=== PATIENT | female | born 1960 | race Caucasian/White ===

== ENCOUNTER 2017-03-22 17:53 | Emergency (ER) | payer OTHER ==
[~2017-03-22] VITALS: Wt 75.5 kg
[~2017-03-22 17:53] MED LIST: CYCL-319 PO; IBUP-1542 PO; [UNRECOGNIZED DRUG - REMARK]
--- NOTE | 2017-03-22 22:21 | ERA ---
ER Documentation Chief Complaint Date/Time DATE: 03/22/17 TIME: 22:20 Chief Complaint FEVER WITH N/V X 4 days HPI The patient is a 57-year-old female, presenting with fever, chills for 4 days, complains of intermittent occipital frontal headache for the last 8 days, intermittent right-sided abdominal pain for more than 3 months. She denies nasal congestion, sore throat, cough, neck pain, chest pain, constipation, diarrhea. She complained of dysuria for the last 4 days. X Past medical history: History of lymphoma. She finished her last chemotherapy last week. She also has diabetes mellitus, hypertension, dyslipidemia Past surgical history: 3 C-sections, right inguinal herniorrhaphy ROS All systems reviewed and are negative except as per history of present illness. Medications Home Meds Active Scripts Ibuprofen* (Motrin*) 600 Mg Tab, 600 MG PO Q6, #20 TAB Prov:WAQAS BRIDGES MD 03/23/17 Ciprofloxacin Hcl* (Ciprofloxacin Hcl*) 500 Mg Tablet, 500 MG PO BID for 7 Days , TAB Prov:WAQAS BRIDGES MD 03/23/17 Ibuprofen* (Motrin*) 600 Mg Tab, 600 MG PO Q6H Y for PAIN AND OR ELEVATED TEMP, #30 Prov:NINFA BAKER. [employer] 04/14/15 Reported Medications Ondansetron Hcl* (Ondansetron Hcl*) 8 Mg Tablet, 8 MG PO DAILY Y for NAUSEA AND OR VOMITING, TAB 03/22/17 Docusate Sodium* (Stool Softener*) 50 Mg Capsule, 50 MG PO DAILY, CAP 03/22/17 Linagliptin (TRADJENTA) 5 Mg Tablet, 5 MG PO DAILY, TAB 03/22/17 Aspirin (Aspir-Low) 81 Mg Tablet.dr, 81 MG PO DAILY 03/22/17 Benazepril Hcl* (Benazepril Hcl*) 5 Mg Tablet, 5 MG PO DAILY, #30 TAB 03/22/17 Metformin Hcl* (Metformin Hcl*) 500 Mg Tablet, 500 MG PO WITH BREAKFAST DINNE, # 60 TAB 03/22/17 Gemfibrozil* (Gemfibrozil*) 600 Mg Tablet, 600 MG PO BID, TAB 03/22/17 Glyburide* (Glyburide*) 5 Mg Tablet, 5 MG PO BID, #60 TAB 03/22/17 Acetaminophen* (Tylenol*) 500 Mg Tab, 500 MG PO Q6H Y for FEVER, TAB 03/22/17 Discontinued Reported Medications [Dm, Cholesterol Med Unknown] No Conflict Check 02/14/12 Discontinued Scripts Cyclobenzaprine Hcl* (Cyclobenzaprine Hcl*) 10 Mg Tablet, 10 MG PO TID, #15 TAB Prov:NINFA BAKER [employer] 04/14/15 Allergies Allergies: Coded Allergies: Penicillins (Verified Allergy, Severe, SWOLLEN FACE, 03/22/17) PMhx/Soc History of Surgery: Yes (C-SECTIONS, BLADDER) Anesthesia Reaction: No Hx Neurological Disorder: No Hx Respiratory Disorders: No Hx Cardiac Disorders: No Hx Psychiatric Problems: No Hx Miscellaneous Medical Probl: No Hx Alcohol Use: No Hx Substance Use: No Hx Tobacco Use: No Physical Exam Vitals Vital Signs Date Time Temp Pulse Resp B/P Pulse Ox O2 Delivery O2 Flow Rate FiO2 03/23/17 00:48 100.0 115 18 104/58 98 Room Air 03/22/17 22:53 100.7 128 18 100/52 98 Room Air 03/22/17 18:03 102.5 147 18 134/69 99 Physical Exam Const: No acute distress. Head: Atraumatic. Eyes: Normal Conjunctiva. ENT: Normal External Ears, Nose and Mouth. Neck: Full range of motion. No meningismus. Resp: Clear to auscultation bilaterally. Cardio: Regular Tachycardic Abd: Soft, non distended, normal bowel sounds, Minimal and vague right -sided abdominal tenderness, no rigidity, rebound, CVA tenderness Skin: No petechiae or rashes. Back: No midline or flank tenderness. Ext: No cyanosis, or edema. Neur: Awake and alert. No focal deficit Psych: Normal Mood and Affect. Result Diagram: 03/22/17223903/22/172239 Results 24 hrs Laboratory Tests Test 03/22/17 22:40 03/22/17 22:42 White Blood Count 7.510^3/ul Red Blood Count 3.4610^6/ul Hemoglobin 9.9g/dl Hematocrit 29.9% Mean Corpuscular Volume 86.4fl Mean Corpuscular Hemoglobin 28.6pg Mean Corpuscular Hemoglobin Concent 33.1g/dl Red Cell Distribution Width 13.4% Platelet Count 03164^3/UL Mean Platelet Volume 9.5fl Neutrophils % 87.5% Lymphocytes % 2.8% Monocytes % 8.4% Eosinophils % 0.4% Basophils % 0.1% Nucleated Red Blood Cells % 0.0/100WBC Neutrophils # 6.510^3/ul Lymphocytes # 0.210^3/ul Monocytes # 0.610^3/ul Eosinophils # 0.010^3/ul Basophils # 0.010^3/ul Nucleated Red Blood Cells # 0.010^3/ul Prothrombin Time 14.4Sec Prothrombin Time Ratio 1.1 INR International Normalized Ratio 1.12 Activated Partial Thromboplast Time 34.6Sec Urine Color YELLOW Urine Clarity CLOUDY Urine pH 6.0 Urine Specific Julian 1.003 Urine Ketones NEGATIVEmg/dL Urine Nitrite NEGATIVEmg/dL Urine Bilirubin NEGATIVEmg/dL Urine Urobilinogen NEGATIVEmg/dL Urine Leukocyte Esterase 3+Alla/ul Urine Microscopic RBC 2/HPF Urine Microscopic WBC > 182/HPF Urine Bacteria FEW/HPF Urine Hemoglobin 1+mg/dL Urine Glucose NEGATIVEmg/dL Urine Total Protein NEGATIVEmg/dl Sodium Level 135mmol/L Potassium Level 3.9mmol/L Chloride Level 101mmol/L Carbon Dioxide Level 24mmol/L Anion Gap 14 Blood Urea Nitrogen 7mg/dl Creatinine 0.44mg/dl Glucose Level 308mg/dl Lactic Acid Level 1.8mmol/L Calcium Level 8.7mg/dl Total Bilirubin 0.2mg/dl Direct Bilirubin 0.00mg/dl Indirect Bilirubin 0.2mg/dl Aspartate Amino Transf (AST/SGOT) 26IU/L Alanine Aminotransferase (ALT/SGPT) 47IU/L Alkaline Phosphatase 147IU/L Troponin I 0.085ng/ml Total Protein 6.5g/dl Albumin 3.6g/dl Globulin 2.90g/dl Albumin/Globulin Ratio 1.24 Bedside Urine pH (LAB) 5.5 Bedside Urine Protein (LAB) 1+ Bedside Urine Glucose (UA) Negative Bedside Urine Ketones (LAB) Negative Bedside Urine Blood 1+ Bedside Urine Nitrite (LAB) Negative Bedside Urine Leukocyte Esterase (L 3+ Current Medications Medications (Trade) Dose Ordered Sig/Dianne Route PRN Reason Start Time Stop Time Status Last Admin Dose Admin Acetaminophen 650 mg 650 mg ONCE ONCE PO 03/22/17 23:00 03/22/17 23:01 DC 03/22/17 23:07 Sodium Chloride (NS) 2,340 ml @ 2,340 mls/hr BOLUS X1 ONCE IV 03/22/17 23:00 03/22/17 23:59 DC 03/22/17 23:07 Morphine Sulfate (morphine) 2 mg ONCE ONCE IV 03/22/17 23:00 03/22/17 23:02 DC 03/22/17 23:06 Ondansetron HCl 4 mg 4 mg ONCE STAT IV 03/22/17 23:00 03/22/17 23:02 DC 03/22/17 23:07 Ciprofloxacin/ Dextrose (Cipro Ivpb) 200 ml @ 200 mls/hr ONCE ONCE IVPB 03/23/17 01:00 03/23/17 01:59 Ibuprofen 600 mg 600 mg ONCE ONCE PO 03/23/17 01:00 03/23/17 01:01 Sodium Chloride (NS) 1,000 ml @ 1,000 mls/hr Q1H ONCE IV 03/23/17 01:00 03/23/17 01:59 Procedures/[place] [id number] Radiology Main Line: [phone] DIAGNOSTIC IMAGING REPORT Patient: CRIS LUCERO : 1960 Age: 57 Sex: F MR #: [id number] DOS: 03/22/172220 Ordering MD: WAQAS BRIDGES MD Location: E/R Room/Bed: PROCEDURE: Chest. CLINICAL INDICATION: Chest pain. TECHNIQUE: Single frontal view of the chest was obtained. COMPARISON: None. FINDINGS: The cardiac silhouette is within normal limits. The aortic arch is unremarkable. There is no focal consolidation, vascular congestion or pleural effusion. There is no pneumothorax. IMPRESSION: No evidence for active cardiopulmonary disease. .Dejon Echeverria MD, MD Date Time Electronically viewed and signed by .Dejon Echeverria MD, MD on 03/22/2017 23:54 .T/ CC: WAQAS BRIDGES MD [place] [address] Radiology Main Line: [phone] DIAGNOSTIC IMAGING REPORT Patient: CRIS LUCERO : 1960 Age: 57 Sex: F MR #: [id number] DOS: 03/22/17 2259 Ordering MD: WAQAS BRIDGES MD Location: E/R Room/Bed: PROCEDURE: CT Abdomen and Pelvis without contrast. CLINICAL INDICATION: Abdominal pain. TECHNIQUE: A CT scan of the abdomen and pelvis was performed without intravenous contrast. Coronal and sagittal reformatted images were generated. Images were reviewed on a high-resolution PACS workstation. CTDIvol: 13.94 mGy. DLP: 795.44 mGy-cm. One or more of the following dose reduction techniques were used: - Automated exposure control. - Adjustment of the mA and/or kV according to patient size. - Use of iterative reconstruction technique. COMPARISON: None. FINDINGS: The lung bases are clear. Evaluation of the abdominal and pelvic viscera is limited by the lack of oral and intravenous contrast. The liver (18.3 cm) and spleen (14.3 cm) are mildly enlarged. The liver is diffusely hypodense, consistent with fatty infiltration. The gallbladder is contracted. The common bile duct is not dilated. The spleen is not enlarged. No pancreatic lesion is identified and there is no pancreatic ductal dilatation. The adrenal glands are unremarkable. The kidneys are normal in size. There is mild to moderate symmetric perinephric fat stranding, probably age-related. No hydronephrosis is seen. No urinary stone is identified. There is a small to moderate amount of fluid and fat infiltration in the central small bowel mesentery The small and large bowel are normal in caliber. There is no bowel wall thickening. There is minimal sigmoid colon diverticulosis. The appendix is normal. The urinary bladder is unremarkable. The pelvic organs are within normal limits. No lymphadenopathy is identified. There is no ascites. No pneumoperitoneum is seen. There are mild arterial calcifications. No suspicious osseous lesion is idenitified. IMPRESSION: 1. Small to moderate amount of fluid and fat infiltration in the central small bowel mesentery, nonspecific but possibly related to a panniculitis. The adjacent small bowel is normal in appearance. 2. Mild hepatosplenomegaly and fatty infiltration of the liver. 3. No obstructive uropathy or urinary stone. 4. Normal appendix. 5. Mild atherosclerotic arterial calcifications. RPTAT: HTAR .Sacha Woods MD, MD Date Time Electronically viewed and signed by .Sacha Woods MD, MD on 03/23/2017 00:28 .R/ CC: WAQAS BRIDGES MD EKG: Read by emergency physician Rate/Rhythm: Sinus tachycardia 127 beats/min QRS, ST, T-waves: No ST elevation, no T inversion Impression: Abnormal EKG MEDICAL MAKING DECISION: The patient is a 57-year-old female, presenting with acute cystitis, acute dehydration. She was treated with Tylenol and Motrin for fever, normosaline 30 mL/kg IV and additional 1 L normal saline for acute dehydration, Cipro IV for acute cystitis with good response The differential diagnoses considered include but are not limited to cholelithiasis, cholecystitis, cystitis, pancreatitis, hepatitis, gastritis, peptic ulcer disease, gastric ulcer, appendicitis, diverticulitis, cholangitis, choledocholithiasis, partial small bowel obstruction. Departure Diagnosis: Primary Impression: UTI (urinary tract infection) Additional Impressions: Dehydration Anemia Condition: Good Comments She was discharged with Cipro and Motrin I discussed the findings with the patient. I advised the patient to follow-up with the primary physician in about 1-2 days, sooner if needed and return if any concern. The patient's blood pressure was elevated (>120/80) but appears stable without evidence of hypertension emergency or urgency. The patient was counseled about the risks of hypertension and urged to pursue outpatient monitoring and therapy within a week with their primary care physician. WAQAS BRIDGES MD Mar 22, 2017 22:21
[2017-03-22 22:35] LABS: URINE BLOOD (Dip) POC 1+ (NEGATIVE)
[2017-03-22] MEDS ORDERED: TYL500 PO (22:51)
[2017-03-22] MEDS ORDERED: GLYB5TAB3 PO (22:51)
[2017-03-22] MEDS ORDERED: BENA5TAB2 PO (22:52)
[2017-03-22] MEDS ORDERED: METF500T4 PO (22:52)
[2017-03-22] MEDS ORDERED: GEMF600T60 PO (22:52)
[2017-03-22] MEDS ORDERED: LINA5TAB PO (22:53)
[2017-03-22] MEDS ORDERED: DOCU50CA9 PO (22:53)
[2017-03-22] MEDS ORDERED: ASPI81TA50 PO (22:53)
[2017-03-22] MEDS ORDERED: ONDA8TAB83 PO (22:54)
[2017-03-22] MEDS ORDERED: ACETAMINOPHEN 325 MG TAB PO ONE (23:00)
[2017-03-22] MEDS ORDERED: SOD CHLORIDE 0.9% IV ONE (23:00)
[2017-03-22] MEDS ORDERED: morphine 2 MG INJ IV ONE (23:00)
[2017-03-22] MEDS ORDERED: ONDANSETRON 4 MG INJ IV STA (23:00)
[2017-03-22 23:01] LABS: ABNORMAL IP MESSAGE 1; BASOPHILS % 0.1 % (0.0-2.0); EOSINOPHILS % 0.4 % (0.0-7.0); HEMATOCRIT 29.9 % (37.0-47.0); HEMOGLOBIN 9.9 g/dl (12.0-16.0); LYMPHOCYTES # 0.2 10^3/ul (0.8-2.9); LYMPHOCYTES % 2.8 % (15.0-51.0); MEAN CORPUSCULAR HEMOGLOBIN 28.6 pg (29.0-33.0); MEAN CORPUSCULAR HGB CONC 33.1 g/dl (32.0-37.0); MEAN CORPUSCULAR VOLUME 86.4 fl (82.0-101.0); MEAN PLATELET VOLUME 9.5 fl (7.4-10.4); MONOCYTE # 0.6 10^3/ul (0.3-0.9); MONOCYTES % 8.4 % (0.0-11.0); NEUTROPHIL # 6.5 10^3/ul (1.6-7.5); NEUTROPHILS % 87.5 % (39.0-77.0); PLATELET COUNT 190 10^3/UL (140-415); RED BLOOD COUNT 3.46 10^6/ul (4.20-5.40); RED CELL DISTRIBUTION WIDTH 13.4 % (11.5-14.5); WHITE BLOOD COUNT 7.5 10^3/ul (4.8-10.8)
[2017-03-22 23:04] LABS: POSITIVE DIFF @See below
[2017-03-22 23:15] LABS: ADD UMIC YES; UR ASCORBIC ACID NEGATIVE (NEGATIVE); UR BACTERIA FEW /HPF (NONE SEEN); UR BILIRUBIN (Dip) NEGATIVE (NEGATIVE); UR BLOOD (Dip) 1+ mg/dL (NEGATIVE); UR CLARITY CLOUDY (CLEAR); UR COLOR YELLOW (YELLOW); UR GLUCOSE (Dip) NEGATIVE (NEGATIVE); UR KETONES (Dip) NEGATIVE (NEGATIVE); UR LEUKOCYTE ESTERASE (Dip) 3+ Leu/ul (NEGATIVE); UR NITRITE (Dip) NEGATIVE (NEGATIVE); UR RBC 2 /HPF (0-5); UR SPECIFIC GRAVITY (Dip) 1.003 (1.003-1.030); UR TOTAL PROTEIN (Dip) NEGATIVE (NEGATIVE); UR UROBILINOGEN (Dip) NEGATIVE (NEGATIVE)
[2017-03-22 23:16] LABS: ALBUMIN 3.6 g/dl (3.3-4.9); ALBUMIN/GLOBULIN RATIO 1.24; BILIRUBIN,INDIRECT 0.2 mg/dl (0-1.1); BILIRUBIN,TOTAL 0.2 mg/dl (0.2-1.3); CALCIUM 8.7 mg/dl (8.4-10.2); CREATININE 0.44 mg/dl (0.44-1.00); POTASSIUM 3.9 mmol/L (3.5-5.1); TOTAL PROTEIN 6.5 g/dl (6.1-8.1)
[2017-03-22 23:17] LABS: INR 1.12; PROTIME 14.4 Sec (12.2-14.2); PT RATIO 1.1
[2017-03-22 23:18] LABS: PARTIAL THROMBOPLASTIN TIME 34.6 Sec (25.0-35.0)
[2017-03-22 23:27] LABS: TROPONIN-I 0.085 ng/ml (0.00-0.12)
--- NOTE | 2017-03-22 23:54 | RADRPT ---
PROCEDURE: Chest. CLINICAL INDICATION: Chest pain. TECHNIQUE: Single frontal view of the chest was obtained. COMPARISON: None. FINDINGS: The cardiac silhouette is within normal limits. The aortic arch is unremarkable. There is no focal consolidation, vascular congestion or pleural effusion. There is no pneumothorax. IMPRESSION: No evidence for active cardiopulmonary disease. .Dejon Echeverria MD, MD Date Time Electronically viewed and signed by .Dejon Echeverria MD, on 03/22/2017 23:54 .T/
--- NOTE | 2017-03-23 00:29 | RADRPT ---
PROCEDURE: CT Abdomen and Pelvis without contrast. CLINICAL INDICATION: Abdominal pain. TECHNIQUE: A CT scan of the abdomen and pelvis was performed without intravenous contrast. Cano l and sagittal reformatted images were generated. Images were reviewed on a high-resolution PACS wor kstation. CTDIvol: 13.94 mGy. DLP: 795.44 mGy-cm. One or more of the following dose reduction techniques were used: - Automated exposure control. - Adjustment of the mA and/or kV according to patient size. - Use of iterative reconstruction technique. COMPARISON: None. FINDINGS: The lung bases are clear. Evaluation of the abdominal and pelvic viscera is limited by the lack of oral and intravenous contra st. The liver (18.3 cm) and spleen (14.3 cm) are mildly enlarged. The liver is diffusely hypodense, cons istent with fatty infiltration. The gallbladder is contracted. The common bile duct is not dilated . The spleen is not enlarged. No pancreatic lesion is identified and there is no pancreatic ductal d ilatation. The adrenal glands are unremarkable. The kidneys are normal in size. There is mild to moderate symmetric perinephric fat stranding, proba wilfred age-related. No hydronephrosis is seen. No urinary stone is identified. There is a small to moderate amount of fluid and fat infiltration in the central small bowel mesente ry The small and large bowel are normal in caliber. There is no bowel wall thickening. There is mini mal sigmoid colon diverticulosis. The appendix is normal. The urinary bladder is unremarkable. The pelvic organs are within normal limits. No lymphadenopathy is identified. There is no ascites. No pneumoperitoneum is seen. There are mild a rterial calcifications. No suspicious osseous lesion is idenitified. IMPRESSION: 1. Small to moderate amount of fluid and fat infiltration in the central small bowel mesentery, non specific but possibly related to a panniculitis. The adjacent small bowel is normal in appearance. 2. Mild hepatosplenomegaly and fatty infiltration of the liver. 3. No obstructive uropathy or urinary stone. 4. Normal appendix. 5. Mild atherosclerotic arterial calcifications. RPTAT: HTAR .Sacha Woods MD, MD Date Time Electronically viewed and signed by .Sacha Woods MD, on 03/23/2017 00:28 .R/
[2017-03-23] MEDS ORDERED: CIPR500T4 PO (00:50)
[2017-03-23] MEDS ORDERED: IBUP-1542 PO (00:51)
[2017-03-23] MEDS ORDERED: CIPROFLOXACIN 400MG/D5W 200 ML IVPB ONE (01:00)
[2017-03-23] MEDS ORDERED: IBUPROFEN 600 MG TAB PO ONE (01:00)
[2017-03-23] MEDS ORDERED: SOD CHLORIDE 0.9% 1,000 ML IV ONE (01:00)
[2017-03-23 02:11] VITALS: BP 112/62; PULSE 95; RESP 16; TEMP 98.6
== END 2017-03-23 02:13 | disposition home or self-care (01) ==
LOC: E/R 17:53
DX: N39.0 Urinary tract infection, site not specified (principal); E86.0 Dehydration; D64.9 Anemia, unspecified; I10 Essential (primary) hypertension; E11.9 Type 2 diabetes mellitus without complications; R07.9 Chest pain, unspecified; Z79.82 Long term (current) use of aspirin; Z79.84 Long term (current) use of oral hypoglycemic drugs
CPT/HCPCS: 36415; 71010; 74176; 80053; 81001; 83605; 84484; 85025; 85610; 85730; 87040; 87086; 96374; 96375; J0744; J2270; J2405; J7030; Z7502; Z7610; 81003; 93005

== ENCOUNTER 2019-02-04 18:15 | Observation (INO) | payer OTHER ==
[~2019-02-04] VITALS: Ht 162.6 cm; Wt 78.8 kg
[~2019-02-04 18:15] MED LIST changes: +ASPI-817 PO; +ASPI81TA50 PO; +BENA5TAB33 PO; +CIPR500T4 PO; -CYCL-319 PO; +DOCU50CA9 PO; +GEMF600T8 PO; +GLYB5TAB3 PO; +LINA5TAB PO; +METF500T24 PO; +METO-335 PO; +ONDA8TAB83 PO; +STEGLATRO 5 MG PO; +TYL500 PO; -[UNRECOGNIZED DRUG - REMARK]
--- NOTE | 2019-02-04 18:36 | ERD ---
ER Documentation Chief Complaint Chief Complaint Multiple complaints HPI The patient is a 58-year-old female, presenting to the ER because of multiple complaints. She complains of dyspnea on exertion/ substernal chest pain for 4 days denies similar symptoms previously, has been intermittent, denies chest pain with vomiting/radiation/exertion/diaphoresis. She also complains of epigastric abdominal pain, worsening with food for the last week, denies similar symptoms previously. She denies fever, chills, dysuria, diarrhea, complains of frequent constipation Medical history: Hypertension, diabetes mellitus, dyslipidemia, history of non- Hodgkin lymphoma in remission Surgical history: Urinary bladder surgery, 3 ROS All systems reviewed and are negative except as per history of present illness. Medications Home Meds Reported Medications [Steglatro 5MG] No Conflict Check, 5 MG PO QAM 02/04/19 Aspirin* (Aspirin* EC) 81 Mg Tablet.dr, 81 MG PO DAILY, TAB 02/04/19 Benazepril Hcl* (Benazepril Hcl*) 5 Mg Tablet, 5 MG PO DAILY, #30 TAB 02/04/19 Metformin Hcl* (Metformin Hcl*) 500 Mg Tablet, 500 MG PO WITH BREAKFAST DINNE, #60 TAB 02/04/19 Ibuprofen* (Ibuprofen*) 600 Mg Tablet, 600 MG PO Q6H, TAB 02/04/19 Gemfibrozil* (Gemfibrozil*) 600 Mg Tablet, 600 MG PO BID, TAB 02/04/19 Glyburide* (Glyburide*) 5 Mg Tablet, 5 MG PO BID, #60 TAB 02/04/19 Discontinued Reported Medications Ondansetron Hcl* (Ondansetron Hcl*) 8 Mg Tablet, 8 MG PO DAILY PRN for NAUSEA AND OR VOMITING, TAB 03/22/17 Docusate Sodium* (Stool Softener*) 50 Mg Capsule, 50 MG PO DAILY, CAP 03/22/17 Linagliptin (TRADJENTA) 5 Mg Tablet, 5 MG PO DAILY, TAB 03/22/17 Aspirin (Aspir-Low) 81 Mg Tablet.dr, 81 MG PO DAILY 03/22/17 Benazepril Hcl* (Benazepril Hcl*) 5 Mg Tablet, 5 MG PO DAILY, #30 TAB 03/22/17 Metformin Hcl* (Metformin Hcl*) 500 Mg Tablet, 500 MG PO WITH BREAKFAST DINNE, #60 TAB 03/22/17 Gemfibrozil* (Gemfibrozil*) 600 Mg Tablet, 600 MG PO BID, TAB 03/22/17 Glyburide* (Glyburide*) 5 Mg Tablet, 5 MG PO BID, #60 TAB 03/22/17 Acetaminophen* (Tylenol*) 500 Mg Tab, 500 MG PO Q6H PRN for FEVER, TAB 03/22/17 Discontinued Scripts Ibuprofen* (Motrin*) 600 Mg Tab, 600 MG PO Q6, #20 TAB Prov:WAQAS BRIDGES MD 03/23/17 Ciprofloxacin Hcl* (Ciprofloxacin Hcl*) 500 Mg Tablet, 500 MG PO BID for 7 Days, TAB Prov:WAQAS BRIDGES MD 03/23/17 Ibuprofen* (Motrin*) 600 Mg Tab, 600 MG PO Q6H PRN for PAIN AND OR ELEVATED TEMP, #30 Prov:NINFA BAKER SAMPLE DYE MIXER 04/14/15 Allergies Allergies: Coded Allergies: Penicillins (Verified Allergy, Severe, SWOLLEN FACE, 02/04/19) PMhx/Soc History of Surgery: Yes (Bladder surgery, C -section) Anesthesia Reaction: No Hx Neurological Disorder: No Hx Respiratory Disorders: No Hx Cardiac Disorders: Yes (HTN, Chol) Hx Psychiatric Problems: No Hx Miscellaneous Medical Probl: Yes (DM, Non Hodkins Lymphoma) Hx Alcohol Use: No Hx Substance Use: No Hx Tobacco Use: No Physical Exam Vitals Vital Signs Date Temp Pulse Resp B/P (MAP) Pulse Ox O2 O2 Flow FiO2 Time Delivery Rate 02/04/19 109 18 106/64 100 Room Air 23:32 (78) 02/04/19 105 20 119/67 97 Room Air 21:52 (84) 02/04/19 64 18 122/91 99 Room Air 18:53 (101) 02/04/19 99.8 59 20 132/64 99 18:20 (86) Physical Exam Const: No acute distress. Head: Atraumatic. Eyes: Normal Conjunctiva. ENT: Normal External Ears, Nose and Mouth. Neck: Full range of motion. No meningismus. Resp: Bibasilar crackle Cardio: Regular rate and rhythm. Abd: Soft, non distended, normal bowel sounds, mild epigastric tenderness, no right upper quadrant tenderness/rigidity/rebound/CVA tenderness Skin: No petechiae or rashes. Back: No midline or flank tenderness. Ext: No cyanosis, or edema. Neur: Awake and alert. No focal deficit Psych: Normal Mood and Affect. Result Diagram: 02/04/19185802/04/191858 Results 24 hrs Laboratory Tests Test 02/04/19 18:59 02/04/19 19:09 White Blood Count 8.5 10^3/ul Red Blood Count 4.00 10^6/ul Hemoglobin 11.3 g/dl Hematocrit 34.6 % Mean Corpuscular Volume 86.5 fl Mean Corpuscular Hemoglobin 28.3 pg Mean Corpuscular Hemoglobin Concent 32.7 g/dl Red Cell Distribution Width 13.9 % Platelet Count 303 10^3/UL Mean Platelet Volume 9.6 fl Immature Granulocytes % 0.500 % Neutrophils % 65.4 % Lymphocytes % 23.4 % Monocytes % 8.2 % Eosinophils % 2.0 % Basophils % 0.5 % Nucleated Red Blood Cells % 0.0 /100WBC Immature Granulocytes # 0.040 10^3/ul Neutrophils # 5.6 10^3/ul Lymphocytes # 2.0 10^3/ul Monocytes # 0.7 10^3/ul Eosinophils # 0.2 10^3/ul Basophils # 0.0 10^3/ul Nucleated Red Blood Cells # 0.0 10^3/ul Sodium Level 140 mmol/L Potassium Level 4.0 mmol/L Chloride Level 109 mmol/L Carbon Dioxide Level 20 mmol/L Anion Gap 11 Blood Urea Nitrogen 15 mg/dl Creatinine 0.64 mg/dl Est Glomerular Filtrat Rate mL/min > 60 mL/min Glucose Level 144 mg/dl Calcium Level 9.2 mg/dl Total Bilirubin 0.3 mg/dl Direct Bilirubin 0.00 mg/dl Indirect Bilirubin 0.3 mg/dl Aspartate Amino Transf (AST/SGOT) 31 IU/L Alanine Aminotransferase (ALT/SGPT) 49 IU/L Alkaline Phosphatase 126 IU/L Troponin I 0.019 ng/ml B-Type Natriuretic Peptide 5940 PG/ML Total Protein 6.8 g/dl Albumin 3.9 g/dl Globulin 2.90 g/dl Albumin/Globulin Ratio 1.34 Lipase 68 U/L Bedside Urine pH (LAB) 5.0 Bedside Urine Protein (LAB) Negative Bedside Urine Glucose (UA) 0.50% Bedside Urine Ketones (LAB) Negative Bedside Urine Blood Negative Bedside Urine Nitrite (LAB) Negative Bedside Urine Leukocyte Esterase (L Negative Current Medications Medications Dose Sig/Dianne Start Time Status Last (Trade) Ordered Route PRN Stop Time Admin Dose Reason Admin Ketorolac 15 mg ONCE STAT 02/04/19 DC 02/04/19 Tromethamine IV 19:04 02/04/19 19:12 (Toradol) 19:06 Famotidine 20 mg ONCE ONCE 02/04/19 DC 02/04/19 (Pepcid Iv) IV 19:30 02/04/19 19:12 19:31 Furosemide 40 mg ONCE ONCE 02/04/19 DC 02/04/19 (Lasix) IV 21:30 02/04/19 21:50 21:31 Aspirin 81 mg DAILY PO 02/05/19 (Halfprin) 09:00 Benazepril 5 mg DAILY PO 02/05/19 HCl 09:00 (Lotensin) Gemfibrozil 600 mg BID PO 02/04/19 02/04/19 (Lopid) 23:00 23:20 Glyburide 5 mg BID PO 02/05/19 (Micronase) 09:00 Metformin 500 mg WITH 02/05/19 HCl BREAKFAST 08:00 (Glucophage) DINNE PO 5 mg QAM PO 02/05/19 UNV Miscellaneous 09:00 Information Diagnostic 1 ea AC MEALS AND 02/05/19 Test (Pha) BEDTIME XX 07:00 (Accu-Chek) IV Flush 3 ml PER 02/04/19 (NS 3 ml) PROTOCOL IV 23:00 Ondansetron 4 mg Q6H PRN 02/04/19 HCl (Zofran IV 23:00 Inj) NAUSEA/VOMITI NG Docusate 100 mg Q12H PRN 02/04/19 Sodium PO 23:00 (Colace) .CONSTIPATION Famotidine 20 mg Q12 IV 02/04/19 02/04/19 (Pepcid Iv) 23:00 23:20 Enoxaparin 40 mg DAILY SC 02/05/19 Sodium 09:00 (Lovenox) 1 ea NOTE XX 02/04/19 Miscellaneous 23:00 Information Glucose 15 gm Q15M PRN 02/04/19 (Glutose) PO DECREASED 23:00 GLUCOSE Glucose 22.5 gm Q15M PRN 02/04/19 (Glutose) PO DECREASED 23:00 GLUCOSE Dextrose 25 ml Q15M PRN 02/04/19 (D50w IV DECREASED 23:00 Syringe) GLUCOSE Dextrose 50 ml Q15M PRN 02/04/19 (D50w IV DECREASED 23:00 Syringe) GLUCOSE Glucagon 1 mg Q15M PRN 02/04/19 (Glucagen) IM DECREASED 23:00 GLUCOSE Glucose 15 gm Q15M PRN 02/04/19 (Glutose) BUCCAL 23:00 DECREASED GLUCOSE Morphine 2 mg Q3 PRN IV 02/04/19 Sulfate abd pain 23:00 (morphine) Procedures/MDM [address] [address] Radiology Main Line: [phone] DIAGNOSTIC IMAGING REPORT Patient: CRIS LUCERO : 1960 Age: 58 Sex: F MR #: [id number] DOS: 02/04/19 1905 Ordering MD: WAQAS BRIDGES MD Location: E/R Room/Bed: PROCEDURE: XR Chest, 1 View CLINICAL INDICATION: Shortness of breath. TECHNIQUE: Frontal view of the chest. COMPARISON: None FINDINGS: LUNGS: Linear atelectasis versus fibrosis in the left mid lung and at the bi lateral lung bases. No consolidative pulmonary infiltrates noted. PLEURAL SPACE: Unremarkable. No pneumothorax. HEART: Mild cardiomegaly is noted. MEDIASTINUM: Unremarkable. BONES/JOINTS: Degenerative changes of the thoracic spine are noted. IMPRESSION: 1. Mild cardiomegaly is noted. 2. Linear atelectasis versus fibrosis in the left mid lung and at the bilateral lung bases. No consolidative pulmonary infiltrates noted. RPTAT: [facility] Danielle Duron Physician Date Time Electronically viewed and signed by Danielle Duron Physician Grinder Setup Operator on 02/04/2019 19:26 RmC/ CC: WAQAS BRIDGES MD [id number] [address] [place] [address] Radiology Main Line: [phone] DIAGNOSTIC IMAGING REPORT Patient: CRIS LUCERO : 1960 Age: 58 Sex: F MR #: [id number] DOS: 02/04/19 1905 Ordering MD: WAQAS BRIDGES MD Location: E/R Room/Bed: PROCEDURE: US Abdomen. CLINICAL INDICATION: abdominal pain TECHNIQUE: Multiple real-time images were acquired of the patient's right upper quadrant abdomen and retroperitoneum utilizing a high resolution transducer. COMPARISON: None FINDINGS: The liver demonstrates increased echogenicity. The liver is normal in size and no focal solid lesions are seen. The liver measures 15.5 cm in length. The portal vein is patent with normal direction of flow. No intrahepatic biliary dilatation is seen. There is sludge within the gallbladder. There is a 6 mm polyp versus adherent stone within the gallbladder. The gallbladder wall is thickened, measuring 6 mm. There is mild pericholecystic fluid noted. The common bile duct measures 8 mm. The visualized portions of the pancreas are unremarkable. The tail of the pancreas is not seen. There is a small amount of free fluid in the right upper quadrant, adjacent to the gallbladder. The right kidney is normal in size, and demonstrate normal echogenicity and cortical thickness. The right kidney measures 10.4 cm in long dimension. There is no evidence of hydronephrosis. There are no kidney stones. RPTAT: [facility] IMPRESSION: Sludge within the gallbladder. Possible polyp versus adherent stone within the gallbladder measuring 6 mm. Associated gallbladder wall thickening and pericholecystic fluid may represent acute cholecystitis. This could be confirmed with a HIDA scan if clinically indicated.. Small amount of free fluid in the right upper quadrant, near the gallbladder. Dilated CBD. .Antonino Ray MD, Date Time Electronically viewed and signed by .Antonino Ray MD, on 02/04/2019 19:53 .S/ CC: WAQAS BRIDGES MD [id number] EKG: Read by emergency physician Rate/Rhythm: Sinus tachycardia 110 beats/min QRS, ST, T-waves: No ST elevation, no T inversion, PVC, bigeminy Impression: Abnormal EKG MEDICAL MAKING DECISION: The patient is a 58-year-old female, presenting with acute new onset CHF, acute symptomatic cholelithiasis with dilated CBD per ul trasound She was treated with Toradol and 50 mg IV for pain, Pepcid 20 mg IV for epigastric pain with good response, Lasix 40 mg IV for acute CHF The differential diagnoses considered include but are not limited to CHF, ACS, PE, cholecystitis, choledocholithiasis, UTI, pyelonephritis Departure Diagnosis: Primary Impression: CHF (congestive heart failure) Additional Impressions: Symptomatic cholelithiasis Anemia Condition: Stable Comments I discussed the findings with the patient. I notified the patient with Dr. Luther at 10:40p via [employer], who was made aware of the lab, the treatment, the patient condition. The patient is admitted to [facility]. He would like to withhold the abx at this time and he would consult surgery himself Disclaimer: Inadvertent spelling and grammatical errors are likely due to EHR/dictation software use and do not reflect on the overall quality of patient care. Also, please note that the electronic time recorded on this note does not necessarily reflect the actual time of the patient encounter. WAQAS BRIDGES MD Feb 04, 2019 18:36
[2019-02-04] MEDS ORDERED: KETOROLAC 15 MG INJ IV STA (19:04)
[2019-02-04] MEDS ORDERED: FAMOTIDINE 20 MG INJ IV ONE (19:30)
[2019-02-04] MEDS ORDERED: FUROSEMIDE 40 MG INJ IV ONE (21:30)
[2019-02-04] MEDS ORDERED: GLUCOSE GEL 15 GRAM TUBE PO PRN ×2 (23:00)
[2019-02-04] MEDS ORDERED: ONDANSETRON 4 MG INJ IV PRN (23:00)
[2019-02-04] MEDS ORDERED: GLUCOSE GEL 15 GRAM TUBE BUCCAL PRN (23:00)
[2019-02-04] MEDS ORDERED: DOCUSATE SODIUM 100 MG CAP PO PRN (23:00)
[2019-02-04] MEDS ORDERED: DEXTROSE 50% 50 ML SYRINGE IV PRN ×2 (23:00)
[2019-02-04] MEDS ORDERED: morphine 2 MG INJ IV PRN (23:00)
[2019-02-04] MEDS ORDERED: NACL 0.9% 3 ML SYG IV SCH (23:00)
[2019-02-04] MEDS ORDERED: GLUCAGON 1 MG INJ IM PRN (23:00)
[2019-02-04] MEDS: GEMFIBROZIL 600 MG TAB PO SCH (23:20)
[2019-02-04] MEDS: FAMOTIDINE 20 MG INJ IV SCH (23:20)
[2019-02-05 02:28] VITALS: BMI 31.6
[2019-02-05 02:30] VITALS: Ht 162.6 cm; Wt 78.8 kg
[2019-02-05 07:14] VITALS: BP 101/65; PULSE 45; RESP 18
[2019-02-05] MEDS: ACCU-CHEK XX SCH ×4 (07:47→20:41)
[2019-02-05] MEDS: metFORMIN 500 MG TAB PO SCH ×2 (07:53→17:25)
[2019-02-05] MEDS: GEMFIBROZIL 600 MG TAB PO SCH ×2 (08:36→20:38)
[2019-02-05] MEDS: FAMOTIDINE 20 MG INJ IV SCH (08:36)
[2019-02-05] MEDS: glyBURIDE 5 MG TAB PO SCH ×2 (08:37→20:41)
[2019-02-05] MEDS ORDERED: ENOXAPARIN 40 MG/0.4 ML SYG SC SCH (09:00)
[2019-02-05] MEDS ORDERED: ASPIRIN (EC) 81 MG TAB PO SCH (09:00)
[2019-02-05] MEDS ORDERED: BENAZEPRIL 5 MG TAB PO SCH (09:00)
[2019-02-05] MEDS ORDERED: STEGLATRO 5 MG PO SCH (09:00)
[2019-02-05 11:16] VITALS: BP 110/69; PULSE 47; RESP 19
--- NOTE | 2019-02-05 12:47 | HP ---
DATE OF ADMISSION: 02/04/2019 CHIEF COMPLAINT: Chest pressure and abdominal pain. HISTORY OF PRESENT ILLNESS: A 58-year-old female with a history of hypertension and type 2 diabetes mellitus as well as hyperlipidemia, who presented to Emergency Room with complaint of subste rnal chest pressure on and off x4 days associated with shortness of breath. The patient denies nause a, vomiting or diaphoresis. She also noted right upper quadrant abdominal pain which was worse after eating. No hematemesis. No bright red blood per rectum or melena. No fevers or chills. Initial evaluation included abdominal ultrasound. This study showed sludge within the gallbladder. Possible of adherent stone within the gallbladder, measuring 6 mm. There was associated gallbl adder wall thickening and pericholecystic fluid which may represent acute cholecystitis. The common bile duct was dilated. However, her liver function tests were all within normal limits except mildly elevated alkaline phosphatase of 126. BNP was elevated at 5940. Initial troponin was normal. Ches t x-ray showed mild cardiomegaly with no evidence of pulmonary vascular congestion or infiltrates. PAST MEDICAL HISTORY: 1. Hypertension. 2. Type 2 diabetes mellitus. 3. Hyperlipidemia. 4. Non-Hodgkin's lymphoma, in remission. MEDICATIONS PRIOR TO ADMISSION: 1. Aspirin. 2. Benazepril. 3. Metformin. 4. Ibuprofen. 5. Gemfibrozil. 6. Glyburide. The patient is ALLERGIC TO PENICILLIN. SOCIAL HISTORY: Patient lives at home. She denies tobacco or alcohol use. Several family members a re at the bedside at the time of my visit. OBJECTIVE: GENERAL: Well-developed, well-nourished female who is in no apparent distress. VITAL SIGNS: Stable. She is afebrile. HEENT: Extraocular muscles intact. Pupils are equal and reactive to light bilaterally. Sclerae are anicteric. Oropharynx is clear and moist. NECK: Supple, no JVD, no carotid bruits. LUNGS: Clear to auscultation bilaterally. CARDIAC: Regular rate and rhythm. No murmurs or gallops. ABDOMEN: Soft, right upper quadrant tenderness to palpation. No rebound or guarding. Normoactive b owel sounds. EXTREMITIES: No clubbing, cyanosis, or edema. NEUROLOGICAL: Nonfocal. ASSESSMENT: 1. A 58-year-old female with exertional chest pain and shortness of breath. Rule out coronary ische warren. 2. Right upper quadrant abdominal pain. Ultrasound shows gallbladder sludge, possible stone, and ga llbladder wall thickening. Plan rule out acute cholecystitis. 3. Hypertension, well controlled. 4. Type 2 diabetes mellitus. 5. Non-Hodgkin's lymphoma in remission. PLAN: 1. Admit to telemetry. 2. Repeat troponin. 3. 2D echo. 4. HIDA scan. 5. Cardiology and surgical consultations are requested. Dictated By: LILLI LEMUS/NTS Conf#: [id number] DID#: [id number] CC: VINCENT MCALLISTER MD; CHATO MANN MD; WAQAS GARCIA DO;*[facility]*
[2019-02-05 16:05] VITALS: BP 105/79; PULSE 97; RESP 19
--- NOTE | 2019-02-05 17:50 | CONS ---
Assessment/Plan Assessment/Plan Hospital Course (Demo Recall) Chest pain, abdominal pain and shortness of breath Diabetes Hypertension Patient presents with multiple complaints including chest pain, abdominal pain, shortness of breath. Gallbladder ultrasound with abnormalities but HIDA scan is negative Patient with frequent PVCs on telemetry, serial cardiac enzymes are negative Echocardiogram pending Would consider further ischemic work-up, would need to discuss with nuclear medicine given recent HIDA scan, when further studies could be performed. Consultation Date/Type/Reason Admit Date/Time Feb 04, 2019 at 22:43 Type of Consult Cardiology Reason for Consultation Chest pain Date/Time of Note DATE: 02/05/19 TIME: 17:46 Hx of Present Illness This is a 58-year-old female with past medical history of diabetes, hypertension who presents with 3 to 4 days symptoms of abdominal pain, right-sided chest pain, shortness of breath., At times worse with deep inspiration, times worse with ambulation. Complains of intermittent nausea to as well. Denies any fevers. Since admitted and receiving medications, she is feeling better. Denies any cardiac work-up in the past. 12 point review of systems was performed with all pertinent positives and negatives mentioned above and all else is negative Past Medical History Medical History: diabetes, hypertension Home Meds Reported Medications [Steglatro 5MG] No Conflict Check, 5 MG PO QAM 02/04/19 Aspirin* (Aspirin* EC) 81 Mg Tablet.dr, 81 MG PO DAILY, TAB 02/04/19 Benazepril Hcl* (Benazepril Hcl*) 5 Mg Tablet, 5 MG PO DAILY, #30 TAB 02/04/19 Metformin Hcl* (Metformin Hcl*) 500 Mg Tablet, 500 MG PO WITH BREAKFAST DINNE, #60 TAB 02/04/19 Ibuprofen* (Ibuprofen*) 600 Mg Tablet, 600 MG PO Q6H, TAB 02/04/19 Gemfibrozil* (Gemfibrozil*) 600 Mg Tablet, 600 MG PO BID, TAB 02/04/19 Glyburide* (Glyburide*) 5 Mg Tablet, 5 MG PO BID, #60 TAB 02/04/19 Discontinued Reported Medications Ondansetron Hcl* (Ondansetron Hcl*) 8 Mg Tablet, 8 MG PO DAILY PRN for NAUSEA AND OR VOMITING, TAB 03/22/17 Docusate Sodium* (Stool Softener*) 50 Mg Capsule, 50 MG PO DAILY, CAP 03/22/17 Linagliptin (TRADJENTA) 5 Mg Tablet, 5 MG PO DAILY, TAB 03/22/17 Aspirin (Aspir-Low) 81 Mg Tablet.dr, 81 MG PO DAILY 03/22/17 Benazepril Hcl* (Benazepril Hcl*) 5 Mg Tablet, 5 MG PO DAILY, #30 TAB 03/22/17 Metformin Hcl* (Metformin Hcl*) 500 Mg Tablet, 500 MG PO WITH BREAKFAST DINNE, #60 TAB 03/22/17 Gemfibrozil* (Gemfibrozil*) 600 Mg Tablet, 600 MG PO BID, TAB 03/22/17 Glyburide* (Glyburide*) 5 Mg Tablet, 5 MG PO BID, #60 TAB 03/22/17 Acetaminophen* (Tylenol*) 500 Mg Tab, 500 MG PO Q6H PRN for FEVER, TAB 03/22/17 Discontinued Scripts Ibuprofen* (Motrin*) 600 Mg Tab, 600 MG PO Q6, #20 TAB Prov:PETE BRIDGES MD 03/23/17 Ciprofloxacin Hcl* (Ciprofloxacin Hcl*) 500 Mg Tablet, 500 MG PO BID for 7 Days, TAB Prov:PETE BRIDGES MD 03/23/17 Ibuprofen* (Motrin*) 600 Mg Tab, 600 MG PO Q6H PRN for PAIN AND OR ELEVATED TEMP, #30 Prov:NINFA BAKER NP 04/14/15 Medications Current Medications Aspirin (Halfprin) 81 mg DAILY PO Last administered on 02/05/19 08:36; Admin Dose 81 MG; Start 02/05/19 at 09:00 Benazepril HCl (Lotensin) 5 mg DAILY PO Last administered on 02/05/19 08:37; Admin Dose 5 MG; Start 02/05/19 at 09:00 Gemfibrozil (Lopid) 600 mg BID PO Last administered on 02/05/19 08:36; Admin Dose 600 MG; Start 02/04/19 at 23:00 Glyburide (Micronase) 5 mg BID PO Last administered on 02/05/19 08:37; Admin Dose 5 MG; Start 02/05/19 at 09:00 Metformin HCl (Glucophage) 500 mg WITH BREAKFAST DINNE PO Last administered on 8/8/19at 17:25; Admin Dose 500 MG; Start 02/05/19 at 08:00 Diagnostic Test (Pha) (Accu-Chek) 1 ea AC MEALS AND BEDTIME XX Last administered on 02/05/19at 17:21; Admin Dose 1 EA; Start 02/05/19 at 07:00 IV Flush (NS 3 ml) 3 ml PER PROTOCOL IV ; Start 02/04/19 at 23:00 Ondansetron HCl (Zofran Inj) 4 mg Q6H PRN IV NAUSEA/VOMITING; Start 02/04/19 at 23:00 Docusate Sodium (Colace) 100 mg Q12H PRN PO .CONSTIPATION; Start 02/04/19 at 23:00 Famotidine (Pepcid Iv) 20 mg Q12 IV Last administered on 02/05/19at 08:36; Admin Dose 20 MG; Start 02/04/19 at 23:00 Enoxaparin Sodium (Lovenox) 40 mg DAILY SC Last administered on 02/05/19at 08:47; Admin Dose 40 MG; Start 02/05/19 at 09:00 Miscellaneous Information 1 ea NOTE XX ; Start 02/04/19 at 23:00 Glucose (Glutose) 15 gm Q15M PRN PO DECREASED GLUCOSE; Start 02/04/19 at 23:00 Glucose (Glutose) 22.5 gm Q15M PRN PO DECREASED GLUCOSE; Start 02/04/19 at 23:00 Dextrose (D50w Syringe) 25 ml Q15M PRN IV DECREASED GLUCOSE; Start 02/04/19 at 23:00 Dextrose (D50w Syringe) 50 ml Q15M PRN IV DECREASED GLUCOSE; Start 02/04/19 at 23:00 Glucagon (Glucagen) 1 mg Q15M PRN IM DECREASED GLUCOSE; Start 02/04/19 at 23:00 Glucose (Glutose) 15 gm Q15M PRN BUCCAL DECREASED GLUCOSE; Start 02/04/19 at 23:00 Morphine Sulfate (morphine) 2 mg Q3 PRN IV abd pain; Start 02/04/19 at 23:00 Patient Own Medication 1 ea DAILY PO ; Start 02/06/19 at 09:00 Allergies: Coded Allergies: Penicillins (Verified Allergy, Severe, SWOLLEN FACE, 02/04/19) Social History Smoking Status: Never smoker Exam/Review of Systems Vital Signs Vitals Vital Signs Date Temp Pulse Resp B/P (MAP) Pulse Ox O2 O2 Flow FiO2 Time Delivery Rate 02/05/19 98.1 97 19 105/79 96 16:05 (88) 02/05/19 Nasal 2.0 14:00 Cannula Exam Constitutional: alert, oriented (No apparent distress) Head: normocephalic Respiratory: other (Coarse breath sounds bilaterally, no wheezing) Cardiovascular: regular rate and rhythm (S1-S2 heard) Gastrointestinal: soft, bowel sounds, tender (No guarding) Extremities: edema (Trace) Labs Result Diagram: 02/05/1951802/05/19518 Results 24hrs Laboratory Tests Test 02/04/19 18:59 02/04/19 19:09 02/05/19 05:18 02/05/19 05:19 White Blood Count 8.5 8.4 Red Blood Count 4.00 L 3.89 L Hemoglobin 11.3 L 11.0 L Hematocrit 34.6 L 34.1 L Mean Corpuscular Volume 86.5 87.7 Mean Corpuscular 28.3 L 28.3 L Hemoglobin Mean Corpuscular 32.7 32.3 Hemoglobin Concent Red Cell Distribution 13.9 14.1 Width Platelet Count 303 # 303 Mean Platelet Volume 9.6 9.8 Immature Granulocytes % 0.500 H 0.500 H Neutrophils % 65.4 68.0 Lymphocytes % 23.4 20.7 Monocytes % 8.2 7.7 Eosinophils % 2.0 2.6 Basophils % 0.5 0.5 Nucleated Red Blood 0.0 0.0 Cells % Immature Granulocytes # 0.040 H 0.040 H Neutrophils # 5.6 5.7 Lymphocytes # 2.0 1.7 Monocytes # 0.7 0.7 Eosinophils # 0.2 0.2 Basophils # 0.0 0.0 Nucleated Red Blood 0.0 0.0 Cells # Sodium Level 140 140 Potassium Level 4.0 4.2 Chloride Level 109 107 Carbon Dioxide Level 20 L 26 Anion Gap 11 7 Blood Urea Nitrogen 15 14 Creatinine 0.64 0.67 Est Glomerular Filtrat > 60 > 60 Rate mL/min Glucose Level 144 137 Calcium Level 9.2 9.3 Total Bilirubin 0.3 Direct Bilirubin 0.00 Indirect Bilirubin 0.3 Aspartate Amino 31 Transf (AST/SGOT) Alanine 49 Aminotransferase (ALT/SG PT) Alkaline Phosphatase 126 H Troponin I 0.019 0.026 B-Type Natriuretic 5940 H Peptide Total Protein 6.8 Albumin 3.9 Globulin 2.90 Albumin/Globulin Ratio 1.34 Lipase 68 Bedside Urine pH (LAB) 5.0 Bedside Urine Protein Negative (LAB) Bedside Urine Glucose 0.50% H (UA) Bedside Urine Ketones Negative (LAB) Bedside Urine Blood Negative Bedside Urine Nitrite Negative (LAB) Bedside Urine Negative Leukocyte Esterase (L D-Dimer 2175.13 H D-Dimer Comment Creatine Kinase 39 Creatine Kinase Index 2.0 Creatinine Kinase MB 0.79 (Mass) Erythrocyte 13 Sedimentation Rate Hemoglobin A1c 8.6 H Phosphorus Level 4.7 Magnesium Level 2.0 Lactate Dehydrogenase 367 Triglycerides Level 220 H Cholesterol Level 139 LDL Cholesterol, 71 Calculated HDL Cholesterol 24 L Cholesterol/HDL Ratio 5.7 Thyroid Stimulating 0.918 Hormone (TSH) Test 02/05/19 07:47 02/05/19 10:40 02/05/19 11:26 02/05/19 17:20 Bedside Glucose 145 149 228 H Creatine Kinase 37 Creatine Kinase Index 1.5 Creatinine Kinase MB 0.55 (Mass) Troponin I 0.021 Imaging Imaging ECG sinus tachycardia at 110 bpm with frequent PVCs, bigeminy, QRS 80 ms, nonspecific ST abnormalities Medications Medications Current Medications Aspirin (Halfprin) 81 mg DAILY PO Last administered on 02/05/19 08:36; Admin Dose 81 MG; Start 02/05/19 at 09:00 Benazepril HCl (Lotensin) 5 mg DAILY PO Last administered on 02/05/19 08:37; Admin Dose 5 MG; Start 02/05/19 at 09:00 Gemfibrozil (Lopid) 600 mg BID PO Last administered on 02/05/19 08:36; Admin Dose 600 MG; Start 02/04/19 at 23:00 Glyburide (Micronase) 5 mg BID PO Last administered on 02/05/19 08:37; Admin Dose 5 MG; Start 02/05/19 at 09:00 Metformin HCl (Glucophage) 500 mg WITH BREAKFAST DINNE PO Last administered on 02/05/19 17:25; Admin Dose 500 MG; Start 02/05/19 at 08:00 Diagnostic Test (Pha) (Accu-Chek) 1 ea AC MEALS AND BEDTIME XX Last administered on 02/05/19 17:21; Admin Dose 1 EA; Start 02/05/19 at 07:00 IV Flush (NS 3 ml) 3 ml PER PROTOCOL IV ; Start 02/04/19 at 23:00 Ondansetron HCl (Zofran Inj) 4 mg Q6H PRN IV NAUSEA/VOMITING; Start 02/04/19 at 23:00 Docusate Sodium (Colace) 100 mg Q12H PRN PO .CONSTIPATION; Start 02/04/19 at 23:00 Famotidine (Pepcid Iv) 20 mg Q12 IV Last administered on 02/05/19at 08:36; Admin Dose 20 MG; Start 02/04/19 at 23:00 Enoxaparin Sodium (Lovenox) 40 mg DAILY SC Last administered on 02/05/19at 08:47; Admin Dose 40 MG; Start 02/05/19 at 09:00 Miscellaneous Information 1 ea NOTE XX ; Start 02/04/19 at 23:00 Glucose (Glutose) 15 gm Q15M PRN PO DECREASED GLUCOSE; Start 02/04/19 at 23:00 Glucose (Glutose) 22.5 gm Q15M PRN PO DECREASED GLUCOSE; Start 02/04/19 at 23:00 Dextrose (D50w Syringe) 25 ml Q15M PRN IV DECREASED GLUCOSE; Start 02/04/19 at 23:00 Dextrose (D50w Syringe) 50 ml Q15M PRN IV DECREASED GLUCOSE; Start 02/04/19 at 23:00 Glucagon (Glucagen) 1 mg Q15M PRN IM DECREASED GLUCOSE; Start 02/04/19 at 23:00 Glucose (Glutose) 15 gm Q15M PRN BUCCAL DECREASED GLUCOSE; Start 02/04/19 at 23:00 Morphine Sulfate (morphine) 2 mg Q3 PRN IV abd pain; Start 02/04/19 at 23:00 Patient Own Medication 1 ea DAILY PO ; Start 02/06/19 at 09:00 Pete Hernandez DO Feb 05, 2019 17:50
[2019-02-05] MEDS ORDERED: FAMOTIDINE 20 MG TAB PO SCH (18:00)
[2019-02-05] MEDS ORDERED: MAGNESIUM SULFATE 2 GM/50 ML 50 ML IVPB ONE (18:00)
--- NOTE | 2019-02-05 18:25 | CONS ---
Assessment/Plan Assessment/Plan Hospital Course (Demo Recall) 1. US finding of sludge within the gallbladder, possible polyp versus adherent stone within the gallbladder measuring 6 mm. Associated gallbladder wall thickening and pericholecystic fluid, with dilated CBD; concern for acute cholecystitis; HIDA negative; min elevated alk phos -no emergent surgical intervention necessary at this time but will follow closely -mrcp, evaluate dilated CBD -GI consult 2. Chest pain:Troponin neg 2/ #1 vs. exertional vs. CHF (bnp elevated) vs.other -r/o acs per cards -limit exertional activities for now -cont tele monitoring 3. Elevated alk phos -as above 4. Linear atelectasis versus fibrosis in the left mid lung and at the bilateral lung bases; some Shortness of breath -supportive -per medical team 5. Hypochromic anemia: no overt bleed noted -monitor and tx as needed 6. Diabetes: HgbA1c: 8.6 -glucose optimization -encourage weight loss 7. obesity: bmi 30 -diet and exercise optimization -encourage weight loss 8. HTN and hyperlipidemia hx: -weight loss -med mgt 9. Non-Hodgkin's lymphoma hx -oncology f/u Thank you. Patient seen and examined in collaboration with Dr. Blade Syed. Consultation Date/Type/Reason Admit Date/Time Feb 04, 2019 at 22:43 Date of Consultation: Feb 05, 2019 Type of Consult surgical Reason for Consultation abdominal pain, concern for cholecystitis Requesting Provider: LILLI PATEL MD Date/Time of Note DATE: 02/05/19 TIME: 17:07 Hx of Present Illness Benjamín Lacy is a 58 yo woman with pmh of hypertension, type 2 diabetes mellitus, non-Hodgkin lymphoma as well as hyperlipidemia, who presented to Emergency Room with complaint of intermittent substernal chest pain x4 days associated with shortness of breath, diaphoresis and nausea. Pain is exacerbated by walking. Denies fevers, nausea, vomiting, hematemesis, bright red blood per rectum or melena, change in bowel or bladder habits. GB us noted Sludge within the gallbladder. Possible polyp versus adherent stone within the gallbladder measuring 6 mm. Associated gallbladder wall thickening and pericholecystic fluid may represent acute cholecystitis and dilated cbd. Laboratory findings significant for elevated BNP and slightly elevated alk phos. General surgery was asked to evaluate. 12 point ros was reviewed and is negative except as stated in hpi. Past Medical History as above Home Meds Reported Medications [Steglatro 5MG] No Conflict Check, 5 MG PO QAM 02/04/19 Aspirin* (Aspirin* EC) 81 Mg Tablet.dr, 81 MG PO DAILY, TAB 02/04/19 Benazepril Hcl* (Benazepril Hcl*) 5 Mg Tablet, 5 MG PO DAILY, #30 TAB 02/04/19 Metformin Hcl* (Metformin Hcl*) 500 Mg Tablet, 500 MG PO WITH BREAKFAST DINNE, # 60 TAB 02/04/19 Ibuprofen* (Ibuprofen*) 600 Mg Tablet, 600 MG PO Q6H, TAB 02/04/19 Gemfibrozil* (Gemfibrozil*) 600 Mg Tablet, 600 MG PO BID, TAB 02/04/19 Glyburide* (Glyburide*) 5 Mg Tablet, 5 MG PO BID, #60 TAB 02/04/19 Discontinued Reported Medications Ondansetron Hcl* (Ondansetron Hcl*) 8 Mg Tablet, 8 MG PO DAILY PRN for NAUSEA AND OR VOMITING, TAB 03/22/17 Docusate Sodium* (Stool Softener*) 50 Mg Capsule, 50 MG PO DAILY, CAP 03/22/17 Linagliptin (TRADJENTA) 5 Mg Tablet, 5 MG PO DAILY, TAB 03/22/17 Aspirin (Aspir-Low) 81 Mg Tablet.dr, 81 MG PO DAILY 03/22/17 Benazepril Hcl* (Benazepril Hcl*) 5 Mg Tablet, 5 MG PO DAILY, #30 TAB 03/22/17 Metformin Hcl* (Metformin Hcl*) 500 Mg Tablet, 500 MG PO WITH BREAKFAST DINNE, #60 TAB 03/22/17 Gemfibrozil* (Gemfibrozil*) 600 Mg Tablet, 600 MG PO BID, TAB 03/22/17 Glyburide* (Glyburide*) 5 Mg Tablet, 5 MG PO BID, #60 TAB 03/22/17 Acetaminophen* (Tylenol*) 500 Mg Tab, 500 MG PO Q6H PRN for FEVER, TAB 03/22/17 Discontinued Scripts Ibuprofen* (Motrin*) 600 Mg Tab, 600 MG PO Q6, #20 TAB Prov:WAQAS BRIDGES MD 03/23/17 Ciprofloxacin Hcl* (Ciprofloxacin Hcl*) 500 Mg Tablet, 500 MG PO BID for 7 Days, TAB Prov:WAQAS BRIDGES MD 03/23/17 Ibuprofen* (Motrin*) 600 Mg Tab, 600 MG PO Q6H PRN for PAIN AND OR ELEVATED TEMP, #30 Prov:NINFA BAKER NP 04/14/15 Medications Current Medications Aspirin (Halfprin) 81 mg DAILY PO Last administered on 02/05/19 08:36; Admin Dose 81 MG; Start 02/05/19 at 09:00 Benazepril HCl (Lotensin) 5 mg DAILY PO Last administered on 02/05/19 08:37; Admin Dose 5 MG; Start 02/05/19 at 09:00 Gemfibrozil (Lopid) 600 mg BID PO Last administered on 02/05/19 08:36; Admin Dose 600 MG; Start 02/04/19 at 23:00 Glyburide (Micronase) 5 mg BID PO Last administered on 02/05/19 08:37; Admin Dose 5 MG; Start 02/05/19 at 09:00 Metformin HCl (Glucophage) 500 mg WITH BREAKFAST DINNE PO Last administered on 02/05/19 07:53; Admin Dose 500 MG; Start 02/05/19 at 08:00 Diagnostic Test (Pha) (Accu-Chek) 1 ea AC MEALS AND BEDTIME XX Last administered on 02/05/19 11:27; Admin Dose 1 EA; Start 02/05/19 at 07:00 IV Flush (NS 3 ml) 3 ml PER PROTOCOL IV ; Start 02/04/19 at 23:00 Ondansetron HCl (Zofran Inj) 4 mg Q6H PRN IV NAUSEA/VOMITING; Start 02/04/19 at 23:00 Docusate Sodium (Colace) 100 mg Q12H PRN PO .CONSTIPATION; Start 02/04/19 at 23:00 Famotidine (Pepcid Iv) 20 mg Q12 IV Last administered on 02/05/19 08:36; Admin Dose 20 MG; Start 02/04/19 at 23:00 Enoxaparin Sodium (Lovenox) 40 mg DAILY SC Last administered on 02/05/19 08:47; Admin Dose 40 MG; Start 02/05/19 at 09:00 Miscellaneous Information 1 ea NOTE XX ; Start 02/04/19 at 23:00 Glucose (Glutose) 15 gm Q15M PRN PO DECREASED GLUCOSE; Start 02/04/19 at 23:00 Glucose (Glutose) 22.5 gm Q15M PRN PO DECREASED GLUCOSE; Start 02/04/19 at 23:00 Dextrose (D50w Syringe) 25 ml Q15M PRN IV DECREASED GLUCOSE; Start 02/04/19 at 23:00 Dextrose (D50w Syringe) 50 ml Q15M PRN IV DECREASED GLUCOSE; Start 02/04/19 at 23:00 Glucagon (Glucagen) 1 mg Q15M PRN IM DECREASED GLUCOSE; Start 02/04/19 at 23:00 Glucose (Glutose) 15 gm Q15M PRN BUCCAL DECREASED GLUCOSE; Start 02/04/19 at 23:00 Morphine Sulfate (morphine) 2 mg Q3 PRN IV abd pain; Start 02/04/19 at 23:00 Patient Own Medication 1 ea DAILY PO ; Start 02/06/19 at 09:00 Allergies: Coded Allergies: Penicillins (Verified Allergy, Severe, SWOLLEN FACE, 02/04/19) Past Surgical History bladder suspension Family History Significant Family History: no pertinent family hx Social History Smoking Status: Never smoker Exam/Review of Systems Exam Vitals Vital Signs Date Temp Pulse Resp B/P (MAP) Pulse Ox O2 O2 Flow FiO2 Time Delivery Rate 02/05/19 98.1 97 19 105/79 96 16:05 (88) 02/05/19 Nasal 2.0 14:00 Cannula Constitutional: alert, oriented Psych: nl mood/affect; No anxiety Head: normocephalic, atraumatic Eyes: nl conjunctiva, EOMI, nl lids, nl sclera ENMT: nl external ears & nose, nl lips & teeth, mucosa pink and moist Neck: supple, non-tender, jvd Respiratory: normal air movement; No congested cough Cardiovascular: regular rate and rhythm, nl pulses Gastrointestinal: soft, non-tender, other (negative campos's by palpation) Genitourinary - Female: nl external genitalia Musculoskeletal: nl extremities to inspection, nl gait and stance Extremities: normal pulses Neurological: nl mental status, nl speech, nl strength Skin: nl turgor; No rash or lesions Lymph: nl lymph nodes Results Result Diagram: 02/05/1951802/05/19518 Results 24hrs Laboratory Tests Test 02/04/19:59 02/04/19 19:09 02/05/19 05:18 02/05/19 05:19 White Blood Count 8.5 8.4 Red Blood Count 4.00 L 3.89 L Hemoglobin 11.3 L 11.0 L Hematocrit 34.6 L 34.1 L Mean Corpuscular Volume 86.5 87.7 Mean Corpuscular 28.3 L 28.3 L Hemoglobin Mean Corpuscular 32.7 32.3 Hemoglobin Concent Red Cell Distribution 13.9 14.1 Width Platelet Count 303 # 303 Mean Platelet Volume 9.6 9.8 Immature Granulocytes % 0.500 H 0.500 H Neutrophils % 65.4 68.0 Lymphocytes % 23.4 20.7 Monocytes % 8.2 7.7 Eosinophils % 2.0 2.6 Basophils % 0.5 0.5 Nucleated Red Blood 0.0 0.0 Cells % Immature Granulocytes # 0.040 H 0.040 H Neutrophils # 5.6 5.7 Lymphocytes # 2.0 1.7 Monocytes # 0.7 0.7 Eosinophils # 0.2 0.2 Basophils # 0.0 0.0 Nucleated Red Blood 0.0 0.0 Cells # Sodium Level 140 140 Potassium Level 4.0 4.2 Chloride Level 109 107 Carbon Dioxide Level 20 L 26 Anion Gap 11 7 Blood Urea Nitrogen 15 14 Creatinine 0.64 0.67 Est Glomerular Filtrat > 60 > 60 Rate mL/min Glucose Level 144 137 Calcium Level 9.2 9.3 Total Bilirubin 0.3 Direct Bilirubin 0.00 Indirect Bilirubin 0.3 Aspartate Amino 31 Transf (AST/SGOT) Alanine 49 Aminotransferase (ALT/SG PT) Alkaline Phosphatase 126 H Troponin I 0.019 0.026 B-Type Natriuretic 5940 H Peptide Total Protein 6.8 Albumin 3.9 Globulin 2.90 Albumin/Globulin Ratio 1.34 Lipase 68 Bedside Urine pH (LAB) 5.0 Bedside Urine Protein Negative (LAB) Bedside Urine Glucose 0.50% H (UA) Bedside Urine Ketones Negative (LAB) Bedside Urine Blood Negative Bedside Urine Nitrite Negative (LAB) Bedside Urine Negative Leukocyte Esterase (L D-Dimer 2175.13 H D-Dimer Comment Creatine Kinase 39 Creatine Kinase Index 2.0 Creatinine Kinase MB 0.79 (Mass) Erythrocyte 13 Sedimentation Rate Hemoglobin A1c 8.6 H Phosphorus Level 4.7 Magnesium Level 2.0 Lactate Dehydrogenase 367 Triglycerides Level 220 H Cholesterol Level 139 LDL Cholesterol, 71 Calculated HDL Cholesterol 24 L Cholesterol/HDL Ratio 5.7 Thyroid Stimulating 0.918 Hormone (TSH) Test 02/05/19 07:47 02/05/19 10:40 02/05/19 11:26 Bedside Glucose 145 149 Creatine Kinase 37 Creatine Kinase Index 1.5 Creatinine Kinase MB 0.55 (Mass) Troponin I 0.021 Medications Medication Current Medications Aspirin (Halfprin) 81 mg DAILY PO Last administered on 02/05/19 08:36; Admin Dose 81 MG; Start 02/05/19 at 09:00 Benazepril HCl (Lotensin) 5 mg DAILY PO Last administered on 02/05/19 08:37; Admin Dose 5 MG; Start 02/05/19 at 09:00 Gemfibrozil (Lopid) 600 mg BID PO Last administered on 02/05/19 08:36; Admin Dose 600 MG; Start 02/04/19 at 23:00 Glyburide (Micronase) 5 mg BID PO Last administered on 02/05/19 08:37; Admin Dose 5 MG; Start 02/05/19 at 09:00 Metformin HCl (Glucophage) 500 mg WITH BREAKFAST DINNE PO Last administered on 02/05/19 07:53; Admin Dose 500 MG; Start 02/05/19 at 08:00 Diagnostic Test (Pha) (Accu-Chek) 1 ea AC MEALS AND BEDTIME XX Last administered on 02/05/19 11:27; Admin Dose 1 EA; Start 02/05/19 at 07:00 IV Flush (NS 3 ml) 3 ml PER PROTOCOL IV ; Start 02/04/19 at 23:00 Ondansetron HCl (Zofran Inj) 4 mg Q6H PRN IV NAUSEA/VOMITING; Start 02/04/19 at 23:00 Docusate Sodium (Colace) 100 mg Q12H PRN PO .CONSTIPATION; Start 02/04/19 at 23:00 Famotidine (Pepcid Iv) 20 mg Q12 IV Last administered on 02/05/19 08:36; Admin Dose 20 MG; Start 02/04/19 at 23:00 Enoxaparin Sodium (Lovenox) 40 mg DAILY SC Last administered on 02/05/19 08:47; Admin Dose 40 MG; Start 02/05/19 at 09:00 Miscellaneous Information 1 ea NOTE XX ; Start 02/04/19 at 23:00 Glucose (Glutose) 15 gm Q15M PRN PO DECREASED GLUCOSE; Start 02/04/19 at 23:00 Glucose (Glutose) 22.5 gm Q15M PRN PO DECREASED GLUCOSE; Start 02/04/19 at 23:00 Dextrose (D50w Syringe) 25 ml Q15M PRN IV DECREASED GLUCOSE; Start 02/04/19 at 23:00 Dextrose (D50w Syringe) 50 ml Q15M PRN IV DECREASED GLUCOSE; Start 02/04/19 at 23:00 Glucagon (Glucagen) 1 mg Q15M PRN IM DECREASED GLUCOSE; Start 02/04/19 at 23:00 Glucose (Glutose) 15 gm Q15M PRN BUCCAL DECREASED GLUCOSE; Start 02/04/19 at 23:00 Morphine Sulfate (morphine) 2 mg Q3 PRN IV abd pain; Start 02/04/19 at 23:00 Patient Own Medication 1 ea DAILY PO ; Start 02/06/19 at 09:00 SADIE FRAIRE NP Feb 05, 2019 17:17
--- NOTE | 2019-02-05 18:47 | RADRPT ---
Echocardiogram Report Patient Name: CRIS LUCEROPatient ID: [id number] : 1960 (58y 11m)Study Date: 02/05/2019 11:00:14 AM Gender: FAccession #: [id number] Tech: Cristal [facility] Location: 6[address] Ref.Physician: LILLI PATEL Height(Cm): BSA: Weight(Kg): Quality: AdequateOrder Physician: LILLI PATEL Account #: Procedures: Echocardiographic Report: Transthoracic echocardiogram with complete 2D, M-Mode, and doppler examination. Indications: Evaluate Left Ventricular function. Measurements: 2D/M Mode Doppler Measurement Value Normal Range Measurement Value Normal Range LVIDd 2D 4.7 [ 3.8 - 5.2 ] cm AV Peak Mick 1.7 [ 100.0 - 170.0 ] cm/sec LVIDs 2D 3.4 [ 2.2 - 3.5 ] cm AV Peak PG 12.0 [ 2.0 - 9.0 ] mmHg IVSd 2D 1.0 [ 0.6 - 0.9 ] cm LVOT Peak Mick 1.2 [ 70.0 - 110.0 ] cm/sec IVS/LVPW 2D 1.0 ratio LVOT Peak PG 6.0 [ 2.0 - 6.0 ] mmHg AoR Diam 2D 2.5 [ 2.3 - 3.1 ] cm MV E Peak Mick 0.8 [ 60.0 - 130.0 ] cm/sec LA/Ao 2D 2 ratio MV A Peak Mick 1.0 [ 100.0 - 120.0 ] cm/sec LA Dimen 2D 4.0 [ 2.7 - 3.8 ] cm MV E/A 0.8 [ 0.8 - 1.5 ] ratio MV Decel Time 148 [ 104 - 258 ] msec MV E/A 0.8 [ 0.8 - 1.5 ] ratio TR Peak Mick 2.9 [ 100.0 - 280.0 ] cm/sec TR Peak PG 34.0 mmHg RVSP 49.0 [ 10.0 - 36.0 ] mmHg RA Pressure 15.0 mmHg Findings: Left Ventricle: Normal left ventricular cavity size. Normal left ventricular wall thickness. Moderate left ventricular systolic dysfunction. Ejection fraction is visually estimated at 35 %. Tissue Doppler/Mitral Doppler indices are consistent with impaired relaxation (Stage I diastolic dysfunction). Right Ventricle: Normal right ventricular size. Normal right ventricular systolic function. Left Atrium: The left atrium is normal in size. Right Atrium: The right atrium is normal in size. Atrial Septum: Right to left shunt by color Doppler consistent with PFO vs. ASD. Mitral Valve: Mild mitral leaflet calcification. Mild mitral annular calcification. Trace mitral regurgitation. Aortic Valve: No significant aortic stenosis or insufficiency. Aortic cusps appear mildly calcified. Tricuspid Valve: Normal appearance of the tricuspid valve. The estimated Peak RVSP is 49 mmHg. There is mild tricuspid regurgitation. Pericardium: Trivial pericardial effusion. Aorta: Normal aortic root. IVC: Dilated inferior vena cava with poor inspiratory collapse consistent with elevated right atrial pressures. Conclusions: Normal left ventricular cavity size. Normal left ventricular wall thickness. Moderate left ventricular systolic dysfunction. Ejection fraction is visually estimated at 35 %. Tissue Doppler/Mitral Doppler indices are consistent with impaired relaxation (Stage I diastolic dysfunction). Normal right ventricular size. Normal right ventricular systolic function. Right to left shunt by color Doppler consistent with PFO vs. ASD. Trace mitral regurgitation. No significant aortic stenosis or insufficiency. The estimated Peak RVSP is 49 mmHg. There is mild tricuspid regurgitation. Trivial pericardial effusion. Electronically Signed By: Pete Hernandez 2019-02-05 18:46:54 PDT
[2019-02-05] MEDS ORDERED: METOPROLOL (XL) 25 MG TAB PO SCH (19:00)
[2019-02-05 19:05] VITALS: BP 111/57; PULSE 68; RESP 20
[2019-02-05 23:03] VITALS: BP 98/56; PULSE 63; RESP 18
[2019-02-06] MEDS ORDERED: STEGLATRO 5 MG PO SCH (09:00)
== END 2019-02-05 23:57 | disposition short-term general hospital (02) ==
LOC: E/R 18:15 → 6WM 22:43
PROVIDERS: ADMIT Internal Medicine; ATTEND Internal Medicine
DX: R07.9 Chest pain, unspecified (principal); R10.11 Right upper quadrant pain; R06.02 Shortness of breath; I10 Essential (primary) hypertension; E11.9 Type 2 diabetes mellitus without complications; E78.5 Hyperlipidemia, unspecified; E66.9 Obesity, unspecified; Z68.30 Body mass index [BMI] 30.0-30.9, adult; D50.9 Iron deficiency anemia, unspecified; Z79.82 Long term (current) use of aspirin; Z79.84 Long term (current) use of oral hypoglycemic drugs; Z85.72 Personal history of non-Hodgkin lymphomas
CPT/HCPCS: 36415; 71045; 74181; 76705; 78226; 80048; 80053; 80061; 81003; 82550; 82553; 82962; 83036; 83615; 83690; 83735; 83880; 84100; 84443; 84484; 85025; 85378; 85651; 93005; 93306; 96374; 96375; A9537; J1650; J1885; J1940; J3475; Z7500; Z7502; Z7610; G0378